=== PATIENT | male | born 1970 | race Caucasian/White ===

== ENCOUNTER 2021-05-23 11:11 | Inpatient (IN) ==
[2021-05-23] MEDS ORDERED: cefTRIAXone 1,000 MG in SODIUM CHLORIDE 0.9% 100 ML IV STA (12:21)
[2021-05-23] MEDS ORDERED: DEXAMETHASONE 4 MG/1 ML VIAL IV STA (12:21)
[2021-05-23] MEDS ORDERED: AZITHROMYCIN INJ 500 MG in SODIUM CHLORIDE 0.9% 250 ML IV STA (12:21)
[2021-05-23 13:10] LABS: Basophils % 0.1 % (0.0-0.8); Hematocrit 44.2 VOL% (42.0-52.0); Immature Granulocytes % 0.8 %; Immature Granulocytes Absolute 0.09 #; Lymphocytes # 0.8 10*3/uL (1.4-4.0); Lymphocytes % 7.3 % (21.2-54.2); Mean Corpuscular HGB Conc 33.9 GM/DL (32-36); Mean Corpuscular Volume 98.4 FL (87-102); Mean Platelet Volume 9.2 FL (9.6-12.0); Monocytes % 3.8 % (1.7-12.7); Platelet Count 433 T/CUMM (130-400); Red Blood Count 4.49 MC/CUMM (3.8-5.5); Red Cell Distribution Width 12.2 % (9.3-17.3); White Blood Count 11.1 T/CUMM (4-12)
[2021-05-23 13:31] LABS: Albumin 3.3 G/DL (3.4-5.0); Bilirubin,Total 0.6 MG/DL (0.20-1.00); Calcium 8.7 MG/DL (8.5-10.1); Osmolality,Calculated 263.7 MOS/KG (273-304); Potassium 3.6 MMOL/L (3.5-5.1); Total Protein 8.1 G/DL (6.4-8.2)
[2021-05-23] MEDS ORDERED: GLUCAGON 1 MG VIAL IM PRN (14:19)
[2021-05-23] MEDS ORDERED: ACETAMINOPHEN 325 MG TABLET PO PRN (14:19)
[2021-05-23] MEDS ORDERED: ONDANSETRON 4 MG/2 ML VIAL IV PRN (14:19)
[2021-05-23] MEDS ORDERED: DEXTROSE 50% 25 GM/50 ML VIAL IV PRN (14:19)
[2021-05-23] MEDS: DEXTROSE 5% NACL 0.9% 1,000 ML IV SCH (15:17)
[2021-05-23] MEDS ORDERED: METOPROLOL TARTRATE 25 MG TABLET PO ONE (15:27)
[2021-05-23] MEDS ORDERED: REMDESIVIR 200 MG in SODIUM CHLORIDE 0.9% 210 ML IV ONE (16:00)
[2021-05-23] MEDS: CETIRIZINE 1 MG/ML 30 ML/BOTTLE PO SCH (16:23)
[2021-05-23] MEDS: LEVOFLOXACIN INJ 500 MG/100 ML PREMIX IV SCH (16:36)
[2021-05-23] MEDS ORDERED: hydrALAZINE 20 MG/1 ML VIAL IV ONE (17:02)
[2021-05-23] MEDS ORDERED: hydrALAZINE 20 MG/1 ML VIAL IM PRN (17:02)
[2021-05-23] MEDS: LOSARTAN 50 MG TABLET PO SCH (17:11)
[2021-05-23] MEDS: ASCORBIC ACID 500 MG TABLET PO SCH (20:44)
[2021-05-23] MEDS: RIVAROXABAN 10 MG TABLET PO SCH (20:44)
[2021-05-23] MEDS: METOPROLOL TARTRATE 25 MG TABLET PO SCH (20:44)
[2021-05-23] MEDS: BUDESONIDE/FORMOTEROL 160-4.5 INHALER 6 GM INH SCH (20:45)
[2021-05-24 04:27] LABS: Basophils % 0.1 % (0.0-0.8); Hematocrit 42.5 VOL% (42.0-52.0); Hemoglobin 14.9 GM/DL (14.0-18.0); Immature Granulocytes % 0.9 %; Lymphocytes # 0.9 10*3/uL (1.4-4.0); Lymphocytes % 7.6 % (21.2-54.2); Mean Corpuscular HGB Conc 35.1 GM/DL (32-36); Mean Corpuscular Volume 98.2 FL (87-102); Mean Platelet Volume 9.4 FL (9.6-12.0); Monocytes % 4.8 % (1.7-12.7); Neutrophils % 86.6 % (38.7-73.9); Platelet Count 491 T/CUMM (130-400); Red Blood Count 4.33 MC/CUMM (3.8-5.5); Red Cell Distribution Width 12.3 % (9.3-17.3); White Blood Count 11.7 T/CUMM (4-12)
[2021-05-24 04:48] LABS: ABG Base Excess 4.7 MMOL/L (-2.5-2.5); ABG HCO3 28.4 MMOL/L (20-26); ABG Oxygen Saturation 92.4 % (95-100); ABG PCO2 41.8 MM HG (35-48); ABG PH 7.451 (7.35-7.45); ABG PO2 64.8 MM HG (80-95); ABG TCO2 24.7 MMOL/L (23-27)
[2021-05-24 05:07] LABS: Ferritin 1058.5 ng/mL (26-388)
[2021-05-24 05:08] LABS: Albumin 2.9 G/DL (3.4-5.0); Bilirubin,Total 0.8 MG/DL (0.20-1.00); Calcium 8.5 MG/DL (8.5-10.1); Osmolality,Calculated 277.8 MOS/KG (273-304); Total Protein 7.5 G/DL (6.4-8.2)
[2021-05-24] MEDS: REMDESIVIR 100 MG in SODIUM CHLORIDE 0.9% 100 ML IV SCH (09:27)
[2021-05-24] MEDS: DEXTROSE 5% NACL 0.9% 1,000 ML IV SCH (09:27)
[2021-05-24] MEDS: ASCORBIC ACID 500 MG TABLET PO SCH ×2 (09:27→20:23)
[2021-05-24] MEDS: CHOLECALCIFEROL 1,000 UNIT TABLET PO SCH (09:28)
[2021-05-24] MEDS: ZINC GLUCONATE 50 MG TABLET PO SCH (09:28)
[2021-05-24] MEDS: PANTOPRAZOLE 40 MG TABLET PO SCH (09:28)
[2021-05-24] MEDS: METOPROLOL TARTRATE 25 MG TABLET PO SCH ×2 (09:28→20:22)
[2021-05-24] MEDS: LOSARTAN 50 MG TABLET PO SCH (09:28)
[2021-05-24] MEDS: CETIRIZINE 1 MG/ML 30 ML/BOTTLE PO SCH (09:29)
[2021-05-24] MEDS: BUDESONIDE/FORMOTEROL 160-4.5 INHALER 6 GM INH SCH ×2 (09:29→20:23)
[2021-05-24] MEDS: DEXAMETHASONE 4 MG/1 ML VIAL IV SCH (09:29)
[2021-05-24] MEDS ORDERED: VANCOMYCIN INJ 1,500 MG in SODIUM CHLORIDE 0.9% 500 ML IV SCH (13:00)
[2021-05-24] MEDS: LEVOFLOXACIN INJ 500 MG/100 ML PREMIX IV SCH (16:29)
[2021-05-24] MEDS: VANCOMYCIN INJ 2,000 MG in SODIUM CHLORIDE 0.9% 500 ML IV SCH (16:30)
[2021-05-24] MEDS: RIVAROXABAN 10 MG TABLET PO SCH (20:23)
[2021-05-25] MEDS: VANCOMYCIN INJ 2,000 MG in SODIUM CHLORIDE 0.9% 500 ML IV SCH (02:33)
[2021-05-25 04:04] LABS: ABG Base Excess 4.9 MMOL/L (-2.5-2.5); ABG HCO3 28.4 MMOL/L (20-26); ABG Oxygen Saturation 92.9 % (95-100); ABG PCO2 38.1 MM HG (35-48); ABG PO2 67.4 MM HG (80-95); ABG TCO2 29.6 MMOL/L (23-27); Allen Test Positive
[2021-05-25 05:39] LABS: Basophils % 0.1 % (0.0-0.8); Hematocrit 42.2 VOL% (42.0-52.0); Hemoglobin 14.3 GM/DL (14.0-18.0); Immature Granulocytes % 0.9 %; Immature Granulocytes Absolute 0.12 #; Lymphocytes % 8.1 % (21.2-54.2); Mean Corpuscular HGB Conc 33.9 GM/DL (32-36); Mean Corpuscular Volume 100.2 FL (87-102); Mean Platelet Volume 9.5 FL (9.6-12.0); Monocytes % 5.6 % (1.7-12.7); Neutrophils % 85.3 % (38.7-73.9); Platelet Count 561 T/CUMM (130-400); Red Blood Count 4.21 MC/CUMM (3.8-5.5); Red Cell Distribution Width 12.4 % (9.3-17.3); White Blood Count 12.6 T/CUMM (4-12)
[2021-05-25 06:05] LABS: Band Neutrophils 1 % (0-10); Lymphocytes 9 % (20-55); Segmented Neutrophils 87 % (50-85); Total Cells Counted 100
[2021-05-25 06:06] LABS: Platelet Estimate Increased
[2021-05-25 06:09] LABS: Albumin 2.5 G/DL (3.4-5.0); Calcium 8.4 MG/DL (8.5-10.1); Osmolality,Calculated 285.4 MOS/KG (273-304); Potassium 4.3 MMOL/L (3.5-5.1); Total Protein 6.7 G/DL (6.4-8.2)
[2021-05-25 06:21] LABS: Ferritin 875.5 ng/mL (26-388)
[2021-05-25] MEDS: CHOLECALCIFEROL 1,000 UNIT TABLET PO SCH (09:54)
[2021-05-25] MEDS: PANTOPRAZOLE 40 MG TABLET PO SCH (09:54)
[2021-05-25] MEDS: DEXAMETHASONE 4 MG/1 ML VIAL IV SCH (09:54)
[2021-05-25] MEDS: ZINC GLUCONATE 50 MG TABLET PO SCH (09:54)
[2021-05-25] MEDS: BUDESONIDE/FORMOTEROL 160-4.5 INHALER 6 GM INH SCH ×2 (09:55→21:39)
[2021-05-25] MEDS: LOSARTAN 50 MG TABLET PO SCH (09:55)
[2021-05-25] MEDS: ASCORBIC ACID 500 MG TABLET PO SCH ×2 (09:55→21:37)
[2021-05-25] MEDS: METOPROLOL TARTRATE 25 MG TABLET PO SCH (09:55)
[2021-05-25] MEDS: CETIRIZINE 1 MG/ML 30 ML/BOTTLE PO SCH (09:56)
[2021-05-25] MEDS: REMDESIVIR 100 MG in SODIUM CHLORIDE 0.9% 100 ML IV SCH (11:23)
[2021-05-25] MEDS ORDERED: hydrALAZINE 20 MG/1 ML VIAL IV PRN (11:38)
[2021-05-25] MEDS: DEXTROSE 5% NACL 0.9% 1,000 ML IV SCH ×3 (12:45→17:37)
[2021-05-25] MEDS: LEVOFLOXACIN INJ 500 MG/100 ML PREMIX IV SCH (14:36)
[2021-05-25] MEDS ORDERED: MELATONIN 3 MG TABLET PO PRN (21:22)
[2021-05-25] MEDS: RIVAROXABAN 10 MG TABLET PO SCH (21:37)
[2021-05-26 05:35] LABS: Basophils % 0.2 % (0.0-0.8); Hematocrit 44.8 VOL% (42.0-52.0); Hemoglobin 14.9 GM/DL (14.0-18.0); Immature Granulocytes % 0.9 %; Immature Granulocytes Absolute 0.11 #; Lymphocytes # 1.4 10*3/uL (1.4-4.0); Lymphocytes % 11.8 % (21.2-54.2); Mean Corpuscular HGB Conc 33.3 GM/DL (32-36); Mean Corpuscular Volume 100.2 FL (87-102); Monocytes % 7.7 % (1.7-12.7); Neutrophils % 79.4 % (38.7-73.9); Platelet Count 653 T/CUMM (130-400); Red Blood Count 4.47 MC/CUMM (3.8-5.5); Red Cell Distribution Width 12.2 % (9.3-17.3)
[2021-05-26 06:00] LABS: Lymphocytes 11 % (20-55); Platelet Estimate Increased; Segmented Neutrophils 81 % (50-85); Total Cells Counted 100
[2021-05-26 06:13] LABS: Albumin 2.5 G/DL (3.4-5.0); Bilirubin,Total 0.7 MG/DL (0.20-1.00); Calcium 8.3 MG/DL (8.5-10.1); Osmolality,Calculated 288.1 MOS/KG (273-304); Potassium 3.8 MMOL/L (3.5-5.1); Total Protein 6.7 G/DL (6.4-8.2)
[2021-05-26 06:16] LABS: Ferritin 782.9 ng/mL (26-388)
[2021-05-26] MEDS: DEXTROSE 5% NACL 0.9% 1,000 ML IV SCH (06:50)
[2021-05-26] MEDS: ZINC GLUCONATE 50 MG TABLET PO SCH (08:28)
[2021-05-26] MEDS: LOSARTAN 50 MG TABLET PO SCH (08:28)
[2021-05-26] MEDS: CHOLECALCIFEROL 1,000 UNIT TABLET PO SCH (08:28)
[2021-05-26] MEDS: PANTOPRAZOLE 40 MG TABLET PO SCH (08:28)
[2021-05-26] MEDS: ASCORBIC ACID 500 MG TABLET PO SCH ×2 (08:29→21:42)
[2021-05-26] MEDS: DEXAMETHASONE 4 MG/1 ML VIAL IV SCH (08:29)
[2021-05-26] MEDS: CETIRIZINE 1 MG/ML 30 ML/BOTTLE PO SCH (08:29)
[2021-05-26] MEDS: BUDESONIDE/FORMOTEROL 160-4.5 INHALER 6 GM INH SCH ×2 (08:30→21:44)
[2021-05-26] MEDS: REMDESIVIR 100 MG in SODIUM CHLORIDE 0.9% 100 ML IV SCH (09:28)
[2021-05-26] MEDS: LEVOFLOXACIN INJ 500 MG/100 ML PREMIX IV SCH (14:13)
[2021-05-26] MEDS: RIVAROXABAN 10 MG TABLET PO SCH (21:42)
[2021-05-27 06:00] LABS: Basophils % 0.2 % (0.0-0.8); Eosinophils % 0.2 % (0.00-10.9); Hematocrit 45.4 VOL% (42.0-52.0); Hemoglobin 15.2 GM/DL (14.0-18.0); Immature Granulocytes % 1.4 %; Immature Granulocytes Absolute 0.14 #; Lymphocytes # 1.9 10*3/uL (1.4-4.0); Lymphocytes % 18.6 % (21.2-54.2); Mean Corpuscular HGB Conc 33.5 GM/DL (32-36); Mean Corpuscular Volume 98.3 FL (87-102); Monocytes % 8.8 % (1.7-12.7); Neutrophils % 70.8 % (38.7-73.9); Platelet Count 713 T/CUMM (130-400); Red Blood Count 4.62 MC/CUMM (3.8-5.5); Red Cell Distribution Width 12.2 % (9.3-17.3); White Blood Count 10.1 T/CUMM (4-12)
[2021-05-27 06:26] LABS: Albumin 2.6 G/DL (3.4-5.0); Bilirubin,Total 0.9 MG/DL (0.20-1.00); Calcium 8.6 MG/DL (8.5-10.1); Osmolality,Calculated 279.5 MOS/KG (273-304); Potassium 3.9 MMOL/L (3.5-5.1); Total Protein 6.9 G/DL (6.4-8.2)
[2021-05-27 06:28] LABS: Ferritin 912.4 ng/mL (26-388)
[2021-05-27 06:38] LABS: Platelet Estimate Increased
[2021-05-27] MEDS: ZINC GLUCONATE 50 MG TABLET PO SCH (09:08)
[2021-05-27] MEDS: ASCORBIC ACID 500 MG TABLET PO SCH (09:08)
[2021-05-27] MEDS: DEXAMETHASONE 4 MG/1 ML VIAL IV SCH (09:08)
[2021-05-27] MEDS: CHOLECALCIFEROL 1,000 UNIT TABLET PO SCH (09:08)
[2021-05-27] MEDS: PANTOPRAZOLE 40 MG TABLET PO SCH (09:09)
[2021-05-27] MEDS: LOSARTAN 50 MG TABLET PO SCH (09:09)
[2021-05-27] MEDS: BUDESONIDE/FORMOTEROL 160-4.5 INHALER 6 GM INH SCH (09:10)
[2021-05-27] MEDS: CETIRIZINE 1 MG/ML 30 ML/BOTTLE PO SCH (09:11)
[2021-05-27] MEDS: REMDESIVIR 100 MG in SODIUM CHLORIDE 0.9% 100 ML IV SCH (10:12)
[2021-05-27 11:53] VITALS: BP 153/88
== END 2021-05-27 15:04 | disposition home or self-care (01) | DRG 177 ==
LOC: N.ED 11:11 → N.EDINP 14:12 → SUATTDRO 14:12 → N.2E 15:00
PROVIDERS: ADMIT Hospitalist; ATTEND Internal Medicine